=== PATIENT | male | born 1995 | race Caucasian/White ===

== ENCOUNTER 2019-06-19 22:47 | Inpatient (IN) | payer MEDICAID ==
[2019-06-19 23:42] LABS: ABS Basophils 0.1 10^3/ul (0-0.2); ABS Lymphocytes 2.1 10^3/ul (1.0-4.8); ABS Monocytes 0.5 10^3/ul (0-0.8); ABS Neutrophils 5.7 10^3/ul (1.5-7.7); Eosinophil % 0.4 %; Hematocrit 46 % (42-52); Hemoglobin 16.8 g/dL (14.0-18.0); Lymphocyte % 25.3 %; Mean Corpuscular HGB Conc 36 g/dL (31-36); Mean Corpuscular Hemoglobin 34 pg (27-31); Mean Corpuscular Volume 92 fL (80-94); Mean Platelet Volume 8.1 fL (7.4-10.4); Nucleated Red Blood Cells % 0.1; Platelet Count 271 10^3/uL (150-450); Red Blood Count 5.01 10^6 /uL (4.18-5.48); Red Cell Distribution Width 13 % (10-15); White Blood Count 8.4 10^3/uL (3.5-10.8)
[2019-06-19] MEDS ORDERED: LORazepam TAB(*) 1 MG PO ONE (23:42)
--- NOTE | 2019-06-19 23:55 | ED ---
Psychiatric Complaint - HPI Summary HPI Summary: The patient is a 23 y/o male presenting to [facility] accompanied by mother with a chief complaint of depression worsening today. He reports that his friend called police because he is feeling some sort of way, as they are concerned that he said he didnt want to be around his friends child because he doesnt want to ruin the child. He was in the bathroom in his apartment and heard a knock on the door from police. Police told his mother what was happening, and they agreed to bring him here. He recently left the [employer] in April, and he was supposed to have a job lined up, but it fell through. He had been sober for 33 days following a DWI until today when he drank. He denies any SI or plans recently, but he has had previous thoughts with plans. His mother states she is very worried about the patient because of the history of depression in the family, [herself, the patients father]. She states that she dropped the patient off at his meeting today, and he likely had gone to the liquor store around the counter due to the depression and stress he has been dealing with. She would like the patient to receive some help. He states that he had 375ml vodka an hour ago to an hour and a half ago. Current smoker, daily EtOH, marijuana use. Medications reviewed. Allergies noted. - History Of Current Complaint Chief Complaint: EDSuicidal Time Seen by Provider: 06/19/19 23:03 Hx Obtained From: Patient, Family/Diving Judge - mother Onset/Duration: Sudden Onset, Still Present Timing: Constant Severity Initially: Moderate Severity Currently: Moderate Character: Depressed Aggravating Factor(s): Recent Stress, Alcohol Use Alleviating Factor(s): Nothing Related History: Positive For: Prior Psychiatric Issues - depression Has Suicidal: Denies: Thoughts - none now, With A Plan Ingestion History: Type/Name Of Drug - Vodka, Amount Ingested - 375 ml, Approximate Time Of Ingestion - 2229/2299 - Allergies/Home Medications Allergies/Adverse Reactions: Allergies Allergy/AdvReac Type Severity Reaction Status Date / Time No Known Allergies Allergy Verified 06/19/19 22:57 Home Medications: Home Medications NK [No Home Medications Reported] 06/19/19 [History Confirmed 06/19/19] PMH/Surg Hx/FS Hx/Imm Hx Endocrine/Hematology History: Denies: Hx Diabetes Respiratory History: Denies: Hx Asthma Psychiatric History: Reports: Hx Depression, Hx Substance Abuse - alcohol - Surgical History Surgical History: None Surgery Procedure, Year, and Place: none Infectious Disease History: No Infectious Disease History: Denies: Traveled Outside the [place] in Last 30 Days - Family History Known Family History: Positive: Other - depression - Social History Alcohol Use: Daily Hx Substance Use: Yes Substance Use Type: Reports: Marijuana Hx Tobacco Use: Yes Smoking Status (MU): Heavy Every Day Tobacco Smoker Review of Systems Negative: Fever Positive: Depressed. Negative: Other - SI now All Other Systems Reviewed And Are Negative: Yes Physical Exam - Summary Physical Exam Summary: Appearance: Well-appearing, Well-nourished, lying in bed comfortable Skin: Warm, dry, no obvious rash Eyes: sclera anicteric, no conjunctival pallor HENT: mucous membranes moist Neck: deferred Respiratory: No signs of respiratory distress Cardiovascular: Appears well perfused, pulses are nml Abdomen: deferred Musculoskeletal: Moving all 4 extremities without obvious discomfort Neurological: Awake and alert, mentation is normal, speech is fluent and appropriate Psychiatric: Restless, Pacing, Moderately depression, Speech is fluent with no slurring Triage Information Reviewed: Yes Vital Signs On Initial Exam: Initial Vitals Temp Pulse Resp BP Pulse Ox 97.4 F 90 16 121/88 100 06/19/19 22:50 06/19/19 22:50 06/19/19 22:50 06/19/19 22:50 06/19/19 22:50 Vital Signs Reviewed: Yes Procedures - Sedation Patient Received Moderate/Deep Sedation with Procedure: No Diagnostics - Vital Signs Vital Signs Temp Pulse Resp BP Pulse Ox 06/19/19 22:50 97.4 F 90 16 121/88 100 - Laboratory Lab Results: Lab Results 06/19/19 Range/Units 23:36 WBC 8.4 (3.5-10.8) 10^3/uL RBC 5.01 (4.18-5.48) 10^6 /uL Hgb 16.8 (14.0-18.0) g/dL Hct 46 (42-52) % MCV 92 (80-94) fL MCH 34 H (27-31) pg MCHC 36 (31-36) g/dL RDW 13 (10-15) % Plt Count 271 (150-450) 10^3/uL MPV 8.1 (7.4-10.4) fL Neut % (Auto) 67.9 % Lymph % (Auto) 25.3 % Jay % (Auto) 5.8 % Eos % (Auto) 0.4 % Baso % (Auto) 0.6 % Absolute Neuts (auto) 5.7 (1.5-7.7) 10^3/ul Absolute Lymphs (auto) 2.1 (1.0-4.8) 10^3/ul Absolute Monos (auto) 0.5 (0-0.8) 10^3/ul Absolute Eos (auto) 0.0 (0-0.6) 10^3/ul Absolute Basos (auto) 0.1 (0-0.2) 10^3/ul Absolute Nucleated RBC 0.0 10^3/ul Nucleated RBC % 0.1 Result Diagrams: 06/19/19 23:36 06/19/19 23:36 Lab Statement: Any lab studies that have been ordered have been reviewed, and results considered in the medical decision making process. Re-Evaluation - Re-Evaluation First Eval Re-Evaluation Time: 02:30 Comment: Patient is clinically sober. Second Eval Re-Evaluation Time: 02:50 Comment: I spoke with the patient and his mother. He denies SI. His mother is not concerned with his safety at present. Third Eval Re-Evaluation Time: 03:00 Change: Worse Comment: While the nurse was discharging the patient, he stated that he "is going to shoot himself in the face." Patient needs to stay to be evaluated by psychiatry. He is medically clear for MHE. Course/Dx - Course Course Of Treatment: 23 y/o male presenting with increased depression with alcohol use tonight, although he is supposed to be sober. Concerns from mother due to the stress he is dealing with. Physical exam reveals patient to be restless and pacing with moderate depression, speech is fluent without slurring. Patient administered Ativan to help calm him. Blood work reveals chloride of 99, calcium of 10.8, and albumin of 5.7. UA is negative for UTI or other findings. Toxicology screen shows serum alcohol of 179 but is otherwise negative. Patient is clincially sober at 0230. I spoke with the patient and his mother. He denies SI. His mother is not concerned with his safety at present. He is safe for discharge and does not need a MHE a this time, which the patient' s mother feels comfortable with. Patient understands and agrees with this plan. ADDENDUM: Once the patient was being discharged, he made suicidal statements and now needs a psychiatric evaluation. The patient is a sign-out from Dr. Craig Peterson MD, to Dr. Leroy Munoz DO, at change of shift at 0700 on 06/20/19, pending psychiatric evaluation and disposition. - Differential Dx/Clinical Impression Provider Diagnosis: Depression Discharge ED - Sign-Out/Discharge Documenting (check all that apply): Sign-Out Patient Signing out patient TO: Mariusz Munoz - Patient is a sign-out to Dr. Leroy Munoz DO, at change of shift at 0700 on 06/20/19, pending MHE and disposition. - Discharge Plan Condition: Stable Disposition: PSYCHIATRIC FACILITY-[facility] [place] - Billing Disposition and Condition Condition: STABLE Disposition: Psychiatric Facility [facility] [place] - Attestation Statements Document Initiated by Yunibe: Yes Documenting Scribe: Laura Pérez Provider For Whom Ena is Documenting (Include Credential): Dr. Craig Peterson MD Scribe Attestation: Laura Kelsey scribed for Dr. Craig Peterson MD on 06/23/19 at 0526. Scribe Documentation Reviewed: Yes Provider Attestation: The documentation as recorded by the Laura bone accurately reflects the service I personally performed and the decisions made by me, Dr. Craig Peterson MD Status of Scribe Document: Viewed
[2019-06-19 23:57] LABS: ALT 16 U/L (7-52); AST 22 U/L (13-39); Albumin 5.7 g/dL (3.2-5.2); Albumin/Globulin Ratio 2.1 (1-3); Alkaline Phosphatase 41 U/L (34-104); Anion Gap 11 mmol/L (2-11); BUN/Creatinine Ratio 8.7 (8-20); Blood Urea Nitrogen 9 mg/dL (6-24); CO2 Carbon Dioxide 32 mmol/L (22-32); Calcium 10.8 mg/dL (8.6-10.3); Chloride 99 mmol/L (101-111); EGFR African American 109.3 (>60); EGFR Non-African American 90.3 (>60); Globulin 2.7 g/dL (2-4); Glucose 88 mg/dL (70-100); Potassium 3.8 mmol/L (3.5-5.0); Sodium 142 mmol/L (135-145); Total Protein 8.4 g/dL (6.4-8.9)
[2019-06-20 00:23] LABS: Acetaminophen < 15 mcg/mL; Alcohol 179 mg/dL (<10); Salicylate < 2.50 mg/dL (<30)
[2019-06-20 00:37] LABS: TSH (Thyroid Stimulating Horm) 2.73 mcIU/mL (0.34-5.60)
[2019-06-20 01:58] LABS: Urine Appearance Clear; Urine Bilirubin Negative (Negative); Urine Blood Negative (Negative); Urine Color Yellow; Urine Glucose Negative (Negative); Urine Ketones Negative (Negative); Urine Nitrite Negative (Negative); Urine Protein Negative (Negative); Urine Specific Gravity 1.006 (1.010-1.030); Urine Urobilinogen Negative (Negative)
[2019-06-20 02:11] LABS: Urine Benzodiazepine Screen None Detected (None Detect); Urine Opiates Screen None Detected (None Detect)
--- NOTE | 2019-06-20 08:24 | ED ---
Progress - Progress Note Progress Note: Patient is received as a sign-out from Dr. Peterson at 0700 06/20/19 shift change pending MHE and disposition of this mental health patient. Patient received MHE. 1122 - Dr. Mejia in ED, he states that the patient will be admitted to [facility] and he will place admission orders. Dx of depressive disorder. Re-Evaluation - Re-Evaluation First Eval Re-Evaluation Time: 02:30 Comment: Patient is clinically sober. Second Eval Re-Evaluation Time: 02:50 Comment: I spoke with the patient and his mother. He denies SI. His mother is not concerned with his safety at present. Third Eval Re-Evaluation Time: 03:00 Change: Worse Comment: While the nurse was discharging the patient, he stated that he "is going to shoot himself in the face." Patient needs to stay to be evaluated by psychiatry. He is medically clear for MHE. Course/Dx - Course Course Of Treatment: Patient is received as a sign-out from Dr. Peterson at 0700 shift change pending MHE and disposition of this mental health patient. Patient received CONSTANTINE. 1122 - Dr. Mejia in ED, he states that the patient will be admitted to [facility] and he will place admission orders. Dx of depressive disorder. - Diagnoses Provider Diagnoses: Depression - Provider Notifications Discussed Care Of Patient With: Tao Mejia Time Discussed With Above Provider: 11:22 Instructed by Provider To: Other - [id number] - Dr. Mejia in ED, he states that the patient will be admitted to [facility] and he will place admission orders. Dx of depressive disorder. Discharge ED - Sign-Out/Discharge Documenting (check all that apply): Patient Departure - admit, Receiving Sign- Out Receiving patient FROM: Craig Peterson - Discharge Plan Condition: Stable [place] [place] Education Materials: Depression (ED) [facility] [Outside] - Billing Disposition and Condition Condition: STABLE Disposition: [place]iatric [place] [facility] [place] Attestation Statements Document Initiated by Scribe: Yes Documenting Scribe: NATIVIDAD PERRY Provider For Whom Scribe is Documenting (Include Credential): LAYA FLETCHER, DO Scribe Attestation: I, NATIVIDAD PERRY, scribed for LAYA FLETCHER DO on 06/20/19 at 1407. Scribe Documentation Reviewed: Yes Provider Attestation: The documentation as recorded by the scribeNATIVIDAD accurately reflects the service I personally performed and the decisions made by me, LAYA FLETCHER DO Status of Scribe Document: Viewed
[2019-06-20] MEDS ORDERED: Al Hydrox/Mg Hydrox/Simet LIQ* 30 ML UDC PO PRN (11:32)
[2019-06-20] MEDS ORDERED: Acetaminophen TAB* 325 MG PO PRN (11:32)
[2019-06-20] MEDS ORDERED: chlorproMAZINE TAB* 100 MG PO PRN (11:34)
[2019-06-20] MEDS ORDERED: Nicotine* 4MG (FRUIT FLAVOR) GUM PO PRN (11:34)
[2019-06-20] MEDS ORDERED: LORazepam TAB(*) 1 MG PO PRN (11:34)
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
--- NOTE | 2019-06-21 21:22 | PN ---
Subjective - Subjective Date of Service: 06/21/19 Service Type: 52125 Hosp care 15 min low complexity Subjective: Mood reported as "still a little anxious and upset about being here [but] I've been pretty good today." Sleep has been OK, not horrible but could be better. Denies any thoughts about harming himself or others, to which he follows up by saying that he is just trying to find ways to relax. He reports that he does not recall having told his friend or his friend's that he had suicidal thoughts. Agrees that he loses control of his drinking at intervals and feels that whiskey may have dissolved his memory of having stated he was suicidal, although he remembers being coherent on the phone. Objective - General Observations Appearance: Neat, Well Groomed Appears Stated Age: Yes Stature: WNL Posture: WNL Eye Contact: Average Behavior/Activity: WNL - Interaction Observations Attitude Towards Examiner: Cooperative Stated Mood: Dysphoric - but in a lower holman than on admission Affect: Full Speech Pattern/Tone: Clear, Appropriate, Normal Volume Thought Process: Coherent, Goal Directed Perception: WNL Thought Content: WNL Hallucination Type: None Delusion Type: None - Cognitive Function Level of Consciousness: Awake, Alert, Appropriate Cognition: WNL Estimated Intelligence: Normal Insight: Difficulty Acknowledging Presence of Psyciatric Problems Judgment Within Normal Limits: No Ability to Make Reasonable Decisions: Moderately Impaired - Medication Compliance Cooperative with Inpatient Medication Regimen: No - Group Participation Participates in Group Activities: Yes Assessment - Assessment Merits Inpatient Hospitalization: For Immediate Safety, For Stabilization, Diagnosis Determination, To Initiate Treatment, For Ongoing Evaluation, For Discharge Planning Clinical Impression: Clifton acknowledges alcohol abuse as a holman issue. He reports a history of possible diagnosis with depression previously, but more clearly diagnosed with generalized anxiety disorder. Agrees to a trial of mirtazapine against depressed mood and insomnia, though this is only an issue as regards falling asleep, not staying asleep. Plan - Plan Treatment Plan: Name: CLIFTON MAK Birthdate: 1995 [id number] Start mirtazpine. Encourage groups and milieu. Care will be continued on Sunday under Dr Mejia. Medications: Current Medications Acetaminophen (Tylenol Tab*) 650 mg PO Q4H PRN PRN Reason: for pain; or Temp >101 F Al Hydrox/Mg Hydrox/Simethicone (Maalox Plus*) 30 ml PO Q4H PRN PRN Reason: INDIGESTION Chlorpromazine HCl (Thorazine Tab*) 100 mg PO Q6H PRN PRN Reason: AGITATION Lorazepam (Ativan Tab(*)) 1 mg PO Q6H PRN PRN Reason: ANXIETY Nicotine Polacrilex (Nicotine Gum*) 4 mg PO Q2H PRN PRN Reason: CRAVING - Discharge Plan Discharge Plan: Outpatient Follow Up [facility]
[2019-06-21] MEDS: Mirtazapine TAB* 15 MG PO PRN (21:46)
[2019-06-22] MEDS: Mirtazapine TAB* 15 MG PO PRN (21:28)
--- NOTE | 2019-06-23 11:04 | PN ---
Subjective - Subjective Date of Service: 06/23/19 Service Type: 47300 Hosp care 35 min high complexity Subjective: Nursing Report: Patient was visible on unit, no behavioral incidents. Slept overnight. CC: "[place]" Patient was seen and evaluated today. The patient reported he feels safe on the unit and is interacting with peers. The patient has been sober from alcohol for 33 days and expressed interest in going to alcohol program. He also is in agreement with getting a vivatrol injection for alcohol cravings. He reported having adequate appetite and sleep. The patient reports attending day groups. Per nursing no behavioral issues or overnight events reported. Patient reported that he is tolerating medications without side effects. Mother was presented for visiting hours and plans to pick him up at noon tomorrow. Objective - General Observations Appearance: Neat Appears Stated Age: Yes Stature: WNL Posture: WNL Eye Contact: Average Behavior/Activity: WNL - Interaction Observations Attitude Towards Examiner: Cooperative Stated Mood: Euthymic Affect: Restricted Speech Pattern/Tone: Normal Volume Thought Process: Coherent Perception: WNL Thought Content: WNL Hallucination Type: None Delusion Type: None - Cognitive Function Orientation: A&O x 4 Level of Consciousness: Awake Cognition: WNL - Medication Compliance Cooperative with Inpatient Medication Regimen: Yes - Group Participation Participates in Group Activities: Yes Assessment - Assessment Merits Inpatient Hospitalization: For Immediate Safety Clinical Impression: Clifton acknowledges alcohol abuse as a holman issue. He reports a history of possible diagnosis with depression previously, but more clearly diagnosed with generalized anxiety disorder. Agrees to a trial of mirtazapine against depressed mood and insomnia, though this is only an issue as regards falling asleep, not staying asleep. Plan - Plan Treatment Plan: Name: CLIFTON MAK Birthdate: 1995 [id number] Plan #Q30 minute observation with staff pass # The patient requires psychiatric inpatient admission at this time to assure safety, receive treatment and work toward stabilization. # Obtain collateral information obtained from mother who removed access to firearms # Collaboration with [facility] Us Substance Abuse resources offered and is interested in drug and alcohol program # Vivatrol injection for alcohol cravings # Safe ACT completed #Goals before discharge include: To eliminate/ reduce suicidal ideation Tentative Discharge: Tomorrow 12pm mother plans to pick him up Continued Medication Management: Continue Outpt Medication Medications: Current Medications Acetaminophen (Tylenol Tab*) 650 mg PO Q4H PRN PRN Reason: for pain; or Temp >101 F Al Hydrox/Mg Hydrox/Simethicone (Maalox Plus*) 30 ml PO Q4H PRN PRN Reason: INDIGESTION Last Admin: 06/23/19 10:51 Dose: 30 ml Chlorpromazine HCl (Thorazine Tab*) 100 mg PO Q6H PRN PRN Reason: AGITATION Lorazepam (Ativan Tab(*)) 1 mg PO Q6H PRN PRN Reason: ANXIETY Mirtazapine (Remeron Tab*) 15 mg PO BEDTIME PRN PRN Reason: SLEEP Last Admin: 06/22/19 21:28 Dose: 15 mg Nicotine Polacrilex (Nicotine Gum*) 4 mg PO Q2H PRN PRN Reason: CRAVING - Discharge Plan Discharge Plan: Drug/Alcohol Rehab
--- NOTE | 2019-06-23 11:06 | PN ---
BSU: Group Therapy Note - Service Type Service Type: 71405 Group Psychotherapy - Cognitive Behavioral Group Therapy ( CBT):Patient was attentive and participatory in CBT programming this morning, and remained in good behavioral control. Patient expressed positive insights regarding relevant treatment interventions and goals.
[2019-06-23] MEDS ORDERED: Naltrexone INJ 380 MG IM ONE (13:30)
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
[2019-06-24 08:47] VITALS: BP 130/70
[2019-06-24] MEDS ORDERED: Naltrexone INJ 380 MG IM ONE (10:00)
== END 2019-06-24 12:30 | disposition home or self-care (01) | DRG 751 ==
LOC: ED 22:47 → BSU 06-20 11:32 → ED 06-20 15:51
PROVIDERS: ADMIT Psychiatry & Neurology Psychiatry; ATTEND Psychiatry & Neurology Psychiatry
PROC: GZHZZZZ Group Psychotherapy (ICD-10-PCS; principal; 2019-06-23)
DX: F32.4 Major depressive disorder, single episode, in partial remission (principal); R45.851 Suicidal ideations; F10.10 Alcohol abuse, uncomplicated; Z62.810 Personal history of physical and sexual abuse in childhood; F17.210 Nicotine dependence, cigarettes, uncomplicated; F41.1 Generalized anxiety disorder; G47.00 Insomnia, unspecified; Y90.9 Presence of alcohol in blood, level not specified; Z79.899 Other long term (current) drug therapy
CPT/HCPCS: 36415; 80053; 80307; 80320; 80329; 81003; 84443; 85025; 90853; 99222; 99231; 99233; 99238; 99285; A9270-GY; G0480; J2315

== ENCOUNTER 2019-10-07 21:18 | Inpatient (IN) ==
[2019-10-07 23:11] LABS: ABS Basophils 0.1 10^3/ul (0-0.2); ABS Eosinophils 0.2 10^3/ul (0-0.6); ABS Lymphocytes 3.1 10^3/ul (1.0-4.8); ABS Monocytes 0.4 10^3/ul (0-0.8); Eosinophil % 2.4 %; Hematocrit 45 % (42-52); Hemoglobin 15.6 g/dL (14.0-18.0); Lymphocyte % 48.2 %; Mean Corpuscular HGB Conc 35 g/dL (31-36); Mean Corpuscular Hemoglobin 33 pg (27-31); Mean Corpuscular Volume 96 fL (80-94); Mean Platelet Volume 7.7 fL (7.4-10.4); Nucleated Red Blood Cells % 0.1; Platelet Count 280 10^3/uL (150-450); Red Blood Count 4.71 10^6 /uL (4.18-5.48); Red Cell Distribution Width 13 % (10-15); White Blood Count 6.4 10^3/uL (3.5-10.8)
[2019-10-07 23:14] LABS: Urine Appearance Clear; Urine Bilirubin Negative (Negative); Urine Blood Negative (Negative); Urine Color Straw; Urine Glucose Negative (Negative); Urine Ketones Negative (Negative); Urine Nitrite Negative (Negative); Urine Protein Negative (Negative); Urine Specific Gravity 1.003 (1.010-1.030); Urine Urobilinogen Negative (Negative)
[2019-10-07 23:21] LABS: Acetaminophen < 15 mcg/mL; Alcohol, S 285 mg/dL (<10); Salicylate < 2.50 mg/dL (<30)
[2019-10-07 23:23] LABS: ALT 26 U/L (7-52); AST 56 U/L (13-39); Albumin 4.6 g/dL (3.2-5.2); Albumin/Globulin Ratio 1.8 (1-3); Alkaline Phosphatase 54 U/L (34-104); Anion Gap 10 mmol/L (2-11); BUN/Creatinine Ratio 10.7 (8-20); Blood Urea Nitrogen 8 mg/dL (6-24); CO2 Carbon Dioxide 27 mmol/L (22-32); Calcium 8.8 mg/dL (8.6-10.3); Chloride 105 mmol/L (101-111); EGFR African American 157.6 (>60); EGFR Non-African American 130.2 (>60); Globulin 2.6 g/dL (2-4); Glucose 82 mg/dL (70-100); Potassium 3.8 mmol/L (3.5-5.0); Sodium 142 mmol/L (135-145); Total Protein 7.2 g/dL (6.4-8.9); Urine Benzodiazepine Screen None Detected (None Detect); Urine Opiates Screen None Detected (None Detect)
[2019-10-08] MEDS ORDERED: Al Hydrox/Mg Hydrox/Simet LIQ 30 ML UDC PO PRN (10:19)
[2019-10-08] MEDS ORDERED: LORazepam 1 mg TAB (*) PO SCH (12:00)
[2019-10-08] MEDS ORDERED: Nicotine PATCH 14 MG/24 HR PATCH TRANSDERM SCH (13:00)
[2019-10-08] MEDS: Multivitamins/Minerals TAB PO SCH (14:32)
[2019-10-08] MEDS: Nicotine GUM 4MG FRUIT FLAVOR PO PRN ×2 (14:32→18:22)
[2019-10-08] MEDS: Vitamin THERAPEUTIC TAB PO SCH (14:32)
[2019-10-09] MEDS: Nicotine GUM 4MG FRUIT FLAVOR PO PRN ×3 (07:27→20:27)
[2019-10-09 07:51] LABS: HDL Cholesterol 96.6 mg/dL
[2019-10-09] MEDS: Vitamin THERAPEUTIC TAB PO SCH (08:41)
[2019-10-09] MEDS: Multivitamins/Minerals TAB PO SCH (08:41)
[2019-10-10] MEDS: Vitamin THERAPEUTIC TAB PO SCH (09:27)
[2019-10-10] MEDS: Nicotine GUM 4MG FRUIT FLAVOR PO PRN ×3 (09:28→18:39)
[2019-10-10] MEDS: Multivitamins/Minerals TAB PO SCH (09:29)
[2019-10-11 08:45] VITALS: BP 120/60
[2019-10-11] MEDS: Vitamin THERAPEUTIC TAB PO SCH (09:51)
== END 2019-10-11 12:00 | disposition home or self-care (01) | DRG 751 ==
LOC: ED 22:37 → BSU 10-08 10:19
PROVIDERS: ADMIT Psychiatry & Neurology Psychiatry; ATTEND Psychiatry & Neurology Psychiatry

== ENCOUNTER 2020-03-21 04:15 | Inpatient (IN) ==
[2020-03-21 05:16] LABS: Urine Appearance Clear; Urine Bilirubin Negative (Negative); Urine Blood Negative (Negative); Urine Color Colorless; Urine Glucose Negative (Negative); Urine Ketones Negative (Negative); Urine Nitrite Negative (Negative); Urine Protein Negative (Negative); Urine Specific Gravity 1.003 (1.010-1.030); Urine Urobilinogen Negative (Negative)
[2020-03-21 05:47] LABS: ABS Basophils 0.1 10^3/ul (0-0.2); ABS Eosinophils 0.1 10^3/ul (0-0.6); ABS Lymphocytes 3.1 10^3/ul (1.0-4.8); ABS Monocytes 0.5 10^3/ul (0-0.8); ABS Neutrophils 2.4 10^3/ul (1.5-7.7); Eosinophil % 1.5 %; Hematocrit 44 % (42-52); Hemoglobin 15.6 g/dL (14.0-18.0); Lymphocyte % 50.6 %; Mean Corpuscular HGB Conc 35 g/dL (31-36); Mean Corpuscular Hemoglobin 33 pg (27-31); Mean Corpuscular Volume 94 fL (80-94); Platelet Count 255 10^3/uL (150-450); Red Blood Count 4.66 10^6 /uL (4.18-5.48); Red Cell Distribution Width 12 % (10-15); White Blood Count 6.2 10^3/uL (3.5-10.8)
[2020-03-21 05:50] LABS: ALT 15 U/L (7-52); AST 22 U/L (13-39); Albumin 4.7 g/dL (3.2-5.2); Albumin/Globulin Ratio 1.7 (1-3); Alkaline Phosphatase 45 U/L (34-104); Anion Gap 9 mmol/L (2-11); BUN/Creatinine Ratio 14.5 (8-20); Blood Urea Nitrogen 16 mg/dL (6-24); CO2 Carbon Dioxide 28 mmol/L (22-32); Calcium 8.7 mg/dL (8.6-10.3); Chloride 106 mmol/L (101-111); EGFR African American 100.4 (>60); Globulin 2.7 g/dL (2-4); Glucose 83 mg/dL (70-100); Potassium 3.2 mmol/L (3.5-5.0); Sodium 143 mmol/L (135-145); Total Protein 7.4 g/dL (6.4-8.9)
[2020-03-21 05:53] LABS: Urine Benzodiazepine Screen None Detected (None Detect); Urine Cannabinoids Screen None Detected (None Detect); Urine Opiates Screen None Detected (None Detect)
[2020-03-21] MEDS ORDERED: Potassium Chlor 10 meq TAB PO ONE (05:53)
[2020-03-21 05:54] LABS: Acetaminophen < 15 mcg/mL; Alcohol, S 295 mg/dL (<10); Salicylate < 2.50 mg/dL (<30)
[2020-03-21] MEDS ORDERED: Al Hydrox/Mg Hydrox/Simet LIQ 30 ML UDC PO PRN (21:24)
[2020-03-21] MEDS ORDERED: Lorazepam PYXIS KEY PRN (21:36)
[2020-03-21] MEDS ORDERED: LORazepam PO 0-6 for WAM protocol PO SCH (22:00)
[2020-03-21] MEDS ORDERED: LORazepam IM 0-6 mg for WAM protocol IM SCH (22:00)
[2020-03-22] MEDS ORDERED: Nicotine GUM 4MG FRUIT FLAVOR PO ONE (09:01)
[2020-03-22] MEDS: Vitamin THERAPEUTIC TAB PO SCH (12:50)
[2020-03-22] MEDS: Nicotine GUM 4MG FRUIT FLAVOR PO PRN ×3 (12:51→20:02)
[2020-03-23] MEDS: Nicotine GUM 4MG FRUIT FLAVOR PO PRN ×3 (07:27→17:33)
[2020-03-23 08:09] LABS: HDL Cholesterol 71.3 mg/dL
[2020-03-23] MEDS: Vitamin THERAPEUTIC TAB PO SCH (08:47)
[2020-03-23] MEDS ORDERED: Influenza VAC *QUAD* 2020-21* 0.5 ML SYRINGE IM ONE (13:00)
[2020-03-24 08:36] VITALS: BP 151/63
[2020-03-24] MEDS: Nicotine GUM 4MG FRUIT FLAVOR PO PRN ×2 (08:46→11:11)
[2020-03-24] MEDS: Vitamin THERAPEUTIC TAB PO SCH (08:46)
== END 2020-03-24 11:48 | disposition home or self-care (01) | DRG 751 ==
LOC: ED 04:15 → BSU 17:00
PROVIDERS: ADMIT Psychiatry & Neurology Psychiatry; ATTEND Psychiatry & Neurology Psychiatry